=== PATIENT | male | born 1935 | race Caucasian/White ===

== ENCOUNTER → 2017-01-01 | Outpatient (REF) | payer MEDICARE ==
[2017-01-01 12:16] LABS: ALBUMIN 3.8 GM/DL (3.2-5.2); ALBUMIN/GLOBULIN RATIO 1.09 (1.00-1.93); ALKALINE PHOSPHATASE 90 U/L (45-117); ALT/SGPT 23 U/L (12-78); ANION GAP 8 MEQ/L (8-16); AST/SGOT 17 U/L (15-37); BILIRUBIN,TOTAL 0.5 MG/DL (0.2-1.0); BLOOD UREA NITROGEN 22 MG/DL (7-18); CALCIUM LEVEL 8.9 MG/DL (8.8-10.2); CARBON DIOXIDE LEVEL 29 MEQ/L (21-32); CHLORIDE LEVEL 102 MEQ/L (98-107); CHOLESTEROL LEVEL 160 MG/DL (<200); CREATININE FOR GFR 1.04 MG/DL (0.70-1.30); GLOMERULAR FILTRATION RATE > 60.0 (>42); GLUCOSE, FASTING 87 MG/DL (83-110); POTASSIUM SERUM 4.5 MEQ/L (3.5-5.1); SODIUM LEVEL 139 MEQ/L (136-145); TOTAL PROTEIN 7.3 GM/DL (6.4-8.2); TRIGLYCERIDES LEVEL 117 MG/DL (<150)
== END ==
LOC: M SFHCCLAY 09:41
PROVIDERS: ATTEND Nurse Practitioner
DX: I10 Essential (primary) hypertension (principal); Z12.5 Encounter for screening for malignant neoplasm of prostate
CPT/HCPCS: 80053; 80061; G0103; G0463

== ENCOUNTER 2017-05-05 12:10 | Inpatient (IN) | payer MEDICARE, MEDICAID ==
[~2017-05-05] VITALS: Ht 182.9 cm; Wt 76.7 kg
[2017-05-05] MEDS ORDERED: AMLO25TA PO (12:21)
[2017-05-05] MEDS ORDERED: LISI-538 PO (12:21)
[2017-05-05] MEDS ORDERED: CRES20TA PO (12:21)
[2017-05-05] MEDS ORDERED: ASPI81TA85 PO (12:21)
[2017-05-05] MEDS ORDERED: NS 500 ML IV ONE (12:45)
[2017-05-05 12:48] LABS: BASO # 0.1 K/mm3 (0.0-0.2); BASO % 0.8 % (0.0-1.0); EOS # 0.2 K/mm3 (0.0-0.50); LARGE UNSTAINED CELL # 0.2 K/mm3 (0.0-0.4); LARGE UNSTAINED CELL % 2.2 % (0.0-4.0); LYMPH # 2.9 K/mm3 (1.5-4.5); LYMPH % 31.9 % (24.0-44.0); MEAN CORPUSCULAR HEMOGLOBIN 32.5 pg (27.0-33.0); MEAN CORPUSCULAR HGB CONC 33.5 g/dl (32.0-36.5); MONO # 0.5 K/mm3 (0.0-0.8); NEUTROPHILS # 5.1 K/mm3 (1.8-7.7); NEUTROPHILS % 57.2 % (36.0-66.0); PLATELET COUNT, AUTOMATED 261 k/mm3 (150-450); RED CELL DISTRIBUTION WIDTH 12.7 % (11.5-14.5)
[2017-05-05 13:08] LABS: ALBUMIN 3.9 GM/DL (3.2-5.2); ALBUMIN/GLOBULIN RATIO 0.98 (1.00-1.93); BILIRUBIN,DIRECT 0.6 MG/DL (0.0-0.2); BILIRUBIN,TOTAL 1.3 MG/DL (0.2-1.0); CALCIUM LEVEL 9.7 MG/DL (8.8-10.2); CREATININE FOR GFR 1.45 MG/DL (0.70-1.30); POTASSIUM SERUM 4.2 MEQ/L (3.5-5.1); TOTAL PROTEIN 7.9 GM/DL (6.4-8.2)
[2017-05-05] MEDS ORDERED: ISOVUE-370 76% 100ML VIAL (Q9967) As Ordered ONE (13:12)
--- NOTE | 2017-05-05 13:47 | REP ---
Chest one-view HISTORY: Altered mental status Comparison: 04/02/2010 The lungs are clear. The heart is normal in size. The pulmonary vasculature is normal in appearance. Impression: No acute disease. Signed by Moris Rios MD 05/05/2017 01:38 P
--- NOTE | 2017-05-05 15:14 | REP ---
CT HEAD WITHOUT CONTRAST: HISTORY: Altered mental status. Areas of decreased attentuation are present in the periventricular white matter. This represents small ischemic disease. There is no intraparenchymal hemorrhage, mass, or midline shift. The ventricular system and cortical sulci are dilated consistent with moderate volume loss. There is no extracerebral collection. The visualized sinuses are clear. IMPRESSION: 1. Small vessel ischemic disease. 2. Moderate volume loss. Signed by Moris Rios MD 05/05/2017 03:16 P
--- NOTE | 2017-05-05 15:30 | REP ---
REASON FOR EXAM: Left upper quadrant pain. COMPARISON: None. CONTRAST: 100 mL Isovue 370. The lung bases are clear. There are no pleural or pericardial effusions. The liver is within normal limits. The gallbladder is within normal limits. Granulomatous calcifications are seen within the spleen. There is fatty infiltration of the pancreatic body and tail. The adrenal glands are unremarkable. The right kidney is within normal limits. There is a large 8 cm sized low density mass in the left kidney having water Hounsfield unit readings and without evidence of a septations or enhancing mural nodules. There is a smaller also round 1.7 cm sized structure having the same imaging characteristics. Both are consistent with simple Bosniak class I renal cysts. Calcific atherosclerotic changes are seen in the abdominal aorta. There is no evidence of an intra-abdominal mass or adenopathy. There is no evidence of free fluid or free air. The bowel loops and their mesenteries are within normal limits. CT PELVIS: The bowel loops and their mesenteries are within normal limits. There is no mass or adenopathy. There is no free fluid or free air. Bone window technique though the exam shows hip, spinal, and sacroiliac joint degenerative changes. The bones do appear to be somewhat demineralized. IMPRESSION: There is no evidence of acute intra-abdominal or intrapelvic disease. There are left renal cysts. As described above and other chronic changes. Signed by Anupam Goldstein DO 05/05/2017 04:37 P
--- NOTE | 2017-05-05 18:34 | HPEPDOC ---
General Date of Admission May 05, 2017 at 17:11 Chief Complaint The patient is a 81-year-old male admitted with a reason for visit of Acute Kidney Failure. History of Present Illness 81 y/o male with past medical history of htn, hyperlipidemia who presents to ED with CC of "it hurts to pee". The pt tells me that for the past two months it has been hurting him to urinate, stating that it rondon when he attempts to void and that two nights ago he "wet the bed". He denies blood in his urine, nor stool, pain with defecation, abdominal pain, n/v, fever, chills or muscle aches. Unfortunately he is not the best historian as he is very forgetful and veers off into tangental direction many times in the course of the exam. He does tell me that he lives home alone and does not walk with the assistance of a cane or walker. He is unfortunately not orientated to time nor place, only correctly giving me his name. Home Medications Scheduled Amlodipine Besylate (Norvasc) 2.5 Mg Tab, 5 MG PO DAILY, (Reported) Aspirin (Aspir-81) 81 Mg Tab, 81 MG PO DAILY, (Reported) Lisinopril (Lisinopril) 20 Mg Tab, 20 MG PO DAILY, (Reported) Rosuvastatin Calcium (Crestor) 20 Mg Tab, 20 MG PO DAILY, (Reported) Allergies Coded Allergies: No Known Drug Allergy (Unverified Allergy, Mild, 01/28/13) Past Medical History Medical History HTN hyperlipidemia Family History Significant Family History: No pertinent family hx Social History * Smoker: Denies, former Smoker (tells me quit 20 yrs ago, 10 cigs a day for > 20 yrs) Alcohol: Denies Drugs: denies lives at home by himself Review of Symptoms Constitutional: Denies: Chills, Fever, Malaise Eyes: Denies: Vision change, Conjunctivae inflammation Skin: Denies: Rash, Lesions Pulmonary: Denies: Dyspnea, Cough Cardiovascular: Denies: Chest Pain, Palpitations, Orthopnea, Edema, Lt Headedness Gastrointestinal: Denies: Nausea, Vomiting, Abdominal Pain Genitourinary: Reports: Dysuria, Incontinence, Denies: Frequency, Hematuria, Retention Hematologic: Denies: Bruising Musculoskeletal: Denies: Neck Pain Neurological: Denies: Weakness Psych: Reports: Other Psych (forgetful in questioning, needs re-direction on exam. ) Physical Examination General Exam: Positive: Alert, Cooperative, No Acute Distress Eye Exam: Positive: Conjunctiva & lids normal, EOMI, Negative: Sclera icteric ENT Exam: Positive: Atraumatic Neck Exam: Positive: Supple Chest Exam: Positive: Rhonchi (RLL), Diminished, Negative: Clear to auscultation, Normal air movement, Wheezing Heart Exam: Positive: Tachycardic, Normal S1, Normal S2, Negative: Gallops, Murmurs, Rubs Telemetry: Positive: Atrial fibrillation (paroxysmal a. fib) Abdomen Exam: Positive: Normal bowel sounds, Soft, Negative: Tenderness, Hepatospenomegaly Extremity Exam: Negative: Clubbing, Cyanosis, Edema Vital Signs Vital Signs Date Time Temp Pulse Resp B/P (MAP) Pulse Ox O2 Delivery O2 Flow Rate FiO2 05/05/17 17:44 92 122/75 (91) 98 05/05/17 14:47 16 Room Air 05/05/17 12:23 97.5 Laboratory Data Labs 24H Laboratory Tests 2 05/05/17 12:29: White Blood Count 9.0, Red Blood Count 4.99, Hemoglobin 16.2, Hematocrit 48.4, Mean Corpuscular Volume 97.0H, Mean Corpuscular Hemoglobin 32.5, Mean Corpuscular Hemoglobin Concent 33.5, Red Cell Distribution Width 12.7, Platelet Count 261, Neutrophils (%) (Auto) 57.2, Lymphocytes (%) (Auto) 31.9, Monocytes ( %) (Auto) 6.0H, Eosinophils (%) (Auto) 2.0, Basophils (%) (Auto) 0.8, Neutrophils # (Auto) 5.1, Lymphocytes # (Auto) 2.9, Monocytes # (Auto) 0.5, Eosinophils # (Auto) 0.2, Basophils # (Auto) 0.1, Large Unclassified Cells % 2.2 , Large Unclassified Cells # 0.2, Anion Gap 13, Glomerular Filtration Rate 50.0 , Lactic Acid Level 2.0, Calcium Level 9.7, Aspartate Amino Transf (AST/SGOT) 43H, Alanine Aminotransferase (ALT/SGPT) 36, Alkaline Phosphatase 104, Total Bilirubin 1.3H, Direct Bilirubin 0.6H, Ammonia 13, Total Creatine Kinase 531H, Creatine Kinase MB 15.6H, Creatine Kinase MB Relative Index 2.93, Troponin I 0.03, Total Protein 7.9, Albumin 3.9, Albumin/Globulin Ratio 0.98L, Thyroid Stimulating Hormone (TSH) 3.020 05/05/17 13:02: Bedside Glucose (Misc Panel) 94 05/05/17 15:41: Urine Appearance HAZY, Urine Color YELLOW, Urine pH 5.0, Urine Specific [place] 1.023, Urine Protein 1+H, Urine Glucose (UA) NEGATIVE, Urine Ketones 1+H, Urine Urobilinogen 2.0H, Urine Bilirubin NEGATIVE, Urine Leukocyte Esterase NEGATIVE, Urine Blood 3+H, Urine Nitrite NEGATIVE, Urine WBC (Auto) 5H, Urine RBC (Auto) TNTCH, Urine Hyaline Casts (Auto) 5, Urine Bacteria (Auto) 1+H, Urine Squamous Epithelial Cells 0, Urine Mucus (Auto) SMALL, Urine Sperm (Auto) CBC/BMP Laboratory Tests 05/05/17 12:29 Red Blood Count 4.99, Mean Corpuscular Volume 97.0 H, Mean Corpuscular Hemoglobin 32.5, Mean Corpuscular Hemoglobin Concent 33.5, Red Cell Distribution Width 12.7, Neutrophils (%) (Auto) 57.2, Lymphocytes (%) (Auto) 31.9, Monocytes (%) (Auto) 6.0 H, Eosinophils (%) (Auto) 2.0, Basophils (%) ( Auto) 0.8, Neutrophils # (Auto) 5.1, Lymphocytes # (Auto) 2.9, Monocytes # (Auto ) 0.5, Eosinophils # (Auto) 0.2, Basophils # (Auto) 0.1 Problems (1) Altered mental state Status: Acute Response to Treatment: Stable Problem Text: 53/1.45 BUN/Cr Pt on exam seemed dry, skin and tongue very dry appearing/cracked Na elevated to 149, suspect 2/2 dehydration from reduced PO intake for unknown reason will begin D5W 1/2 NS @ 100 ml to both help with KESHAV and replace free water deficit Will also obtain RPR, MRI, Echo for further work up of AMS q4h neuro checks CT head, ab/pelvis and cxr in ED all showed NAD TSH normal Tox. pending (2) Acute kidney failure Status: Acute Response to Treatment: Stable Problem Text: Baseline creatine 1.0, today 1.45 suspect 2/2 dehydration will begin fluids d5w 1/2NS @ 100 mL ,will hold nephrotoxic medications brownlee cath placed in ED after bladder scan showed >400, suggest trial of void in the morning. U/A neg for infection, results seem congruent with traumatic brownlee insert. continue to monitor (3) Atrial fibrillation Status: Acute Response to Treatment: Stable Problem Text: unfortunately pt can provide no insight or hx into the a. fib, cannot tell me if he has ever been told he had it in the past will continue pts home aspirin, BP have been soft 107/80 in ED,will hold off on continuing home BP medications for now (4) HTN (hypertension) Status: Chronic Response to Treatment: Stable Problem Text: soft BP in ED 107/80 will hold off on home BP medications for now (5) DVT prophylaxis Status: Acute Response to Treatment: Stable Problem Text: scd teds Plan / VTE VTE Prophylaxis Ordered?: Yes Plan / Urinary Catheter Reason for insertion/continuin: Other-document below GME ATTESTATION GME ATTESTATION My preceptor for this patient encounter was physically present in the building during the encounter and was fully available. As needed, all aspects of the patient interview, examination, medical decision making process, and medical care plan development were reviewed and approved by the preceptor. Preceptor is aware and concurs with the plan as stated in the body of this note and will attest to such by his/her cosignature. STORM ANGUIANO DO May 05, 2017 18:34
[2017-05-05 18:36] VITALS: BP 115/69
[2017-05-05 20:00] VITALS: BP 160/72
[2017-05-05] MEDS ORDERED: SLF 3 ML SYR IV PRN (21:00)
[2017-05-05] MEDS: SLF 3 ML SYR IV SCH (22:00)
[2017-05-05] MEDS: D5W/0.45% SODIUM CHLORIDE 1,000 ML IV SCH (22:39)
[2017-05-06] VITALS (8 sets, daily range): BP systolic 77–148; BP diastolic 49–84
[2017-05-06] MEDS: SLF 3 ML SYR IV SCH ×3 (02:43→19:31)
[2017-05-06 05:18] LABS: BASO # 0.1 K/mm3 (0.0-0.2); BASO % 0.7 % (0.0-1.0); EOS # 0.2 K/mm3 (0.0-0.50); EOS % 2.5 % (0.0-3.0); LARGE UNSTAINED CELL # 0.2 K/mm3 (0.0-0.4); LARGE UNSTAINED CELL % 1.7 % (0.0-4.0); LYMPH # 3.1 K/mm3 (1.5-4.5); LYMPH % 29.4 % (24.0-44.0); MEAN CORPUSCULAR HEMOGLOBIN 32.2 pg (27.0-33.0); MEAN CORPUSCULAR VOLUME 97.4 fl (80.0-96.0); MONO # 0.6 K/mm3 (0.0-0.8); MONO % 5.9 % (0.0-5.0); NEUTROPHILS # 5.9 K/mm3 (1.8-7.7); NEUTROPHILS % 59.8 % (36.0-66.0); PLATELET COUNT, AUTOMATED 225 k/mm3 (150-450); RED CELL DISTRIBUTION WIDTH 12.9 % (11.5-14.5); WHITE BLOOD COUNT 9.9 K/mm3 (4.0-10.0)
[2017-05-06 05:30] LABS: CALCIUM LEVEL 9.1 MG/DL (8.8-10.2); CREATININE FOR GFR 1.25 MG/DL (0.70-1.30); GLOMERULAR FILTRATION RATE 59.3 (>42); POTASSIUM SERUM 3.8 MEQ/L (3.5-5.1)
--- NOTE | 2017-05-06 08:58 | REP ---
MRI BRAIN WITHOUT CONTRAST: HISTORY: Altered mental status. COMPARISON: CT 05/05/2017. Areas of increased signal intensity on T2-weighted images are present in the periventricular and subcortical white matter. This represents small vessel ischemic disease. A punctate focus of decreased signal intensity on T2 gradient echo images is present in the violeta. This represents hemosiderin secondary to chronic microhemorrhage. There is no acute intraparenchymal hemorrhage, infarct, mass or midline shift. The ventricular system and cortical sulci are dilated consistent with moderate volume loss. There is no extracerebral collection. The sinuses are clear. Mucosal thickening is present in the mastoid air cells. IMPRESSION: 1. Small vessel ischemic disease. 2. Moderate volume loss. Signed by Moris Rios MD 05/06/2017 09:25 A
[2017-05-06] MEDS: ASPIRIN 81 MG ENTERIC TAB PO SCH (09:27)
[2017-05-06] MEDS: D5W/0.45% SODIUM CHLORIDE 1,000 ML IV SCH ×2 (09:28→19:28)
--- NOTE | 2017-05-06 12:08 | IPNPDOC ---
Subjective Date Seen The patient was seen on 05/06/17. Subjective Chief Complaint/HPI The patient is a 81-year-old male admitted with a reason for visit of Acute Kidney Failure. Events since last encounter No complaints. nurse reports difficulty swallowing. He reports difficutly starting urinary stream prior to admission Constitutional: Denies: Chills, Fever Pulmonary: Denies: Dyspnea, Cough Cardiovascular: Denies: Chest Pain, Palpitations, Orthopnea Gastrointestinal: Denies: Nausea, Vomiting, Abdominal Pain, Diarrhea, Constipation Objective Physical Examination General Exam: Positive: Alert, Cooperative, No Acute Distress, Other (thin cachectic) Eye Exam: Positive: EOMI, Negative: Sclera icteric ENT Exam: Positive: Atraumatic, Negative: Mucous membr. moist/pink (dry buccal mucosa) Neck Exam: Positive: Supple Chest Exam: Positive: Clear to auscultation, Diminished, Negative: Normal air movement, Rales, Wheezing Heart Exam: Positive: Rate Normal, Normal S1, Normal S2, Negative: Gallops, Murmurs, Rubs Telemetry: Positive: Atrial fibrillation (paroxysmal a. fib) Abdomen Exam: Positive: Normal bowel sounds, Soft, Negative: Tenderness, Hepatospenomegaly Male Exam: Negative: Edema Extremity Exam: Negative: Clubbing, Cyanosis, Edema Skin Exam: Negative: Nl turgor and temperature (poor skin turgor) Psych Exam: Positive: Other (Poor historian with memory impairment. Vague ) Assessment /Plan Problems (1) Hypotension Status: Acute Problem Text: Give IVF bolus and monitor BP trends. BP meds on hold (2) Acute kidney failure Status: Acute Response to Treatment: Stable Problem Text: 05/06 KESHAV secondary to dehydration. Renal function improving with IVF. Baseline Cr 1.0 Get swallowing eval due to trouble swallowing per nursing - make NPO until swallow eval is obtained. Hold nephrotoxic medications Brownlee cath placed in ED after bladder scan showed >400, Continue Brownlee Urine culture is pending (3) Metabolic encephalopathy Status: Acute Response to Treatment: Improving Problem Text: Suspect chronic underlying dementia with exacerbation related to dehydration. Hypernatremia may also have played a role - Na+ minimally improved with IVF. Continue to correct slowly and monitor for improvement in mental status MRI brain showed small vessel dz and minimal volume loss CT head, ab/pelvis and cxr in ED all showed NAD TSH normal (4) Atrial fibrillation Onset Date: ~ 04/2017 Status: Resolved Response to Treatment: Stable Problem Text: paroxysmal rapid afib on admission Remains in SR now Get Echo continue ASA for now. (5) HTN (hypertension) Status: Chronic Response to Treatment: Stable Problem Text: soft BP in ED 107/80 will hold off on home BP medications for now (6) Microscopic hematuria Problem Text: U/A in ER showed RBC TNTC with 3+ blood, but I am not sure if this was as a result of cath. He reports difficultly starting urinary stream and reports dysuria on admission. Had urinary retention on admission Continue brownlee. No U/C sent, but I will order one. Will need to do trial of void eventually and f/u U/A for blood. (7) Difficulty swallowing Problem Text: uncertain of when this problem started. Get swallowing eval and make NPO Plan/VTE VTE Prophylaxis Ordered?: Yes (Start SQ heparin) Plan/Urinary Catheter Reason for insertion/continuin: Other-document below Plan Family Medicine Attending Note: Patient seen and examined this afternoon; I discussed with ANTOINE Tamez and I agree with her note above. Cr is improving and BP is better this afternoon s/p IVF bolus. Recheck BMP in the morning. (KES) Disposition get PT/Ot and PFS involved with dispo planning VS, I&O, 24H, Fishbone Vital Signs/I&O Vital Signs Date Time Temp Pulse Resp B/P (MAP) Pulse Ox O2 Delivery O2 Flow Rate FiO2 05/06/17 08:00 97.3 86 18 96/70 (79) 92 Room Air I&O- Last 24 Hours up to 6 AM 05/06/17 06:00 Intake Total 2150 ml Output Total 825 ml Balance 1325 ml Laboratory Data 24H LABS Laboratory Tests 2 05/05/17 12:29: White Blood Count 9.0, Red Blood Count 4.99, Hemoglobin 16.2, Hematocrit 48.4, Mean Corpuscular Volume 97.0H, Mean Corpuscular Hemoglobin 32.5, Mean Corpuscular Hemoglobin Concent 33.5, Red Cell Distribution Width 12.7, Platelet Count 261, Neutrophils (%) (Auto) 57.2, Lymphocytes (%) (Auto) 31.9, Monocytes ( %) (Auto) 6.0H, Eosinophils (%) (Auto) 2.0, Basophils (%) (Auto) 0.8, Neutrophils # (Auto) 5.1, Lymphocytes # (Auto) 2.9, Monocytes # (Auto) 0.5, Eosinophils # (Auto) 0.2, Basophils # (Auto) 0.1, Large Unclassified Cells % 2.2 , Large Unclassified Cells # 0.2, Anion Gap 13, Glomerular Filtration Rate 50.0 , Lactic Acid Level 2.0, Calcium Level 9.7, Aspartate Amino Transf (AST/SGOT) 43H, Alanine Aminotransferase (ALT/SGPT) 36, Alkaline Phosphatase 104, Total Bilirubin 1.3H, Direct Bilirubin 0.6H, Ammonia 13, Total Creatine Kinase 531H, Creatine Kinase MB 15.6H, Creatine Kinase MB Relative Index 2.93, Troponin I 0.03, Total Protein 7.9, Albumin 3.9, Albumin/Globulin Ratio 0.98L, Thyroid Stimulating Hormone (TSH) 3.020 05/05/17 13:02: Bedside Glucose (Misc Panel) 94 05/05/17 15:41: Urine Appearance HAZY, Urine Color YELLOW, Urine pH 5.0, Urine Specific [place] 1.023, Urine Protein 1+H, Urine Glucose (UA) NEGATIVE, Urine Ketones 1+H, Urine Urobilinogen 2.0H, Urine Bilirubin NEGATIVE, Urine Leukocyte Esterase NEGATIVE, Urine Blood 3+H, Urine Nitrite NEGATIVE, Urine WBC (Auto) 5H, Urine RBC (Auto) TNTCH, Urine Hyaline Casts (Auto) 5, Urine Bacteria (Auto) 1+H, Urine Squamous Epithelial Cells 0, Urine Mucus (Auto) SMALL, Urine Sperm (Auto) 05/05/17 19:14: Ammonia 10 05/05/17 19:15: Syphilis Serology NONREACTIVE 05/06/17 05:07: White Blood Count 9.9, Red Blood Count 4.52, Hemoglobin 14.6, Hematocrit 44.1, Mean Corpuscular Volume 97.4H, Mean Corpuscular Hemoglobin 32.2, Mean Corpuscular Hemoglobin Concent 33.0, Red Cell Distribution Width 12.9, Platelet Count 225, Neutrophils (%) (Auto) 59.8, Lymphocytes (%) (Auto) 29.4, Monocytes ( %) (Auto) 5.9H, Eosinophils (%) (Auto) 2.5, Basophils (%) (Auto) 0.7, Neutrophils # (Auto) 5.9, Lymphocytes # (Auto) 3.1, Monocytes # (Auto) 0.6, Eosinophils # (Auto) 0.2, Basophils # (Auto) 0.1, Large Unclassified Cells % 1.7 , Large Unclassified Cells # 0.2, Anion Gap 6L, Glomerular Filtration Rate 59.3 , Blood Urea Nitrogen 46H, Creatinine 1.25, Sodium Level 148H, Potassium Level 3.8, Chloride Level 114H, Carbon Dioxide Level 28, Calcium Level 9.1 CBC/BMP Laboratory Tests 05/05/17 12:29 Red Blood Count 4.99, Mean Corpuscular Volume 97.0 H, Mean Corpuscular Hemoglobin 32.5, Mean Corpuscular Hemoglobin Concent 33.5, Red Cell Distribution Width 12.7, Neutrophils (%) (Auto) 57.2, Lymphocytes (%) (Auto) 31.9, Monocytes (%) (Auto) 6.0 H, Eosinophils (%) (Auto) 2.0, Basophils (%) ( Auto) 0.8, Neutrophils # (Auto) 5.1, Lymphocytes # (Auto) 2.9, Monocytes # (Auto ) 0.5, Eosinophils # (Auto) 0.2, Basophils # (Auto) 0.1 05/06/17 05:07 Red Blood Count 4.52, Mean Corpuscular Volume 97.4 H, Mean Corpuscular Hemoglobin 32.2, Mean Corpuscular Hemoglobin Concent 33.0, Red Cell Distribution Width 12.9, Neutrophils (%) (Auto) 59.8, Lymphocytes (%) (Auto) 29.4, Monocytes (%) (Auto) 5.9 H, Eosinophils (%) (Auto) 2.5, Basophils (%) ( Auto) 0.7, Neutrophils # (Auto) 5.9, Lymphocytes # (Auto) 3.1, Monocytes # (Auto ) 0.6, Eosinophils # (Auto) 0.2, Basophils # (Auto) 0.1, Calcium Level 9.1 RADHA SANTOS PA-C May 06, 2017 12:08 KRISTAN DAMON MD May 06, 2017 15:16
[2017-05-06] MEDS ORDERED: NS 500 ML IV ONE (13:00)
[2017-05-06] MEDS: HEPARIN SOD (PORCINE) 5000 UNITS/ML VIAL SQ SCH ×2 (13:03→20:08)
[2017-05-06] MEDS: ROSUVASTATIN 10 MG TAB (CRESTOR) PO SCH (20:07)
--- NOTE | 2017-05-06 21:41 | ECGEPIP ---
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 No prior ECG available for comparison at the time of interpretation. Electronically Signed On 05-06-2017 21:41:09 EDT by Chicho Mirza
[2017-05-07] VITALS (7 sets, daily range): BP systolic 90–122; BP diastolic 54–67
[2017-05-07] MEDS: SLF 3 ML SYR IV SCH ×3 (03:39→20:57)
[2017-05-07] MEDS: D5W/0.45% SODIUM CHLORIDE 1,000 ML IV SCH ×3 (04:06→23:42)
[2017-05-07 04:41] LABS: METHADONE URINE NEGATIVE (NEGATIVE)
[2017-05-07 06:33] LABS: BASO % 0.5 % (0.0-1.0); EOS # 0.4 K/mm3 (0.0-0.50); EOS % 4.4 % (0.0-3.0); LARGE UNSTAINED CELL # 0.1 K/mm3 (0.0-0.4); LARGE UNSTAINED CELL % 1.1 % (0.0-4.0); LYMPH # 2.8 K/mm3 (1.5-4.5); LYMPH % 30.3 % (24.0-44.0); MEAN CORPUSCULAR HEMOGLOBIN 31.5 pg (27.0-33.0); MEAN CORPUSCULAR HGB CONC 32.6 g/dl (32.0-36.5); MEAN CORPUSCULAR VOLUME 96.6 fl (80.0-96.0); MONO # 0.4 K/mm3 (0.0-0.8); MONO % 4.7 % (0.0-5.0); NEUTROPHILS # 5.3 K/mm3 (1.8-7.7); PLATELET COUNT, AUTOMATED 168 k/mm3 (150-450)
[2017-05-07 06:45] LABS: ANION GAP 5 MEQ/L (8-16); BLOOD UREA NITROGEN 27 MG/DL (7-18); CALCIUM LEVEL 8.4 MG/DL (8.8-10.2); CARBON DIOXIDE LEVEL 29 MEQ/L (21-32); CHLORIDE LEVEL 112 MEQ/L (98-107); CREATININE FOR GFR 1.06 MG/DL (0.70-1.30); GLOMERULAR FILTRATION RATE > 60.0 (>42); GLUCOSE, FASTING 90 MG/DL (83-110); POTASSIUM SERUM 3.4 MEQ/L (3.5-5.1); SODIUM LEVEL 146 MEQ/L (136-145)
--- NOTE | 2017-05-07 07:06 | ECGEPIP ---
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
--- NOTE | 2017-05-07 09:13 | IPNPDOC ---
Subjective Date Seen The patient was seen on 05/07/17. Subjective Chief Complaint/HPI The patient is a 81-year-old male admitted with a reason for visit of Acute Kidney Failure. Events since last encounter Pt denies pain. Complete ROS difficult to obtain d/t dementia. Constitutional: Denies: Fever ENT: Denies: Head Aches Pulmonary: Denies: Dyspnea, Cough Cardiovascular: Denies: Chest Pain Objective Physical Examination General Exam: Positive: Alert, Cooperative, No Acute Distress, Other (thin cachectic) Eye Exam: Positive: EOMI, Negative: Sclera icteric ENT Exam: Positive: Atraumatic Neck Exam: Positive: Supple Chest Exam: Positive: Clear to auscultation, Diminished, Negative: Normal air movement, Rales, Wheezing Heart Exam: Positive: Rate Normal, Normal S1, Normal S2, Negative: Gallops, Murmurs, Rubs Telemetry: Positive: Atrial fibrillation (paroxysmal a. fib) Abdomen Exam: Positive: Normal bowel sounds, Soft, Negative: Tenderness, Hepatospenomegaly Male Exam: Negative: Edema Extremity Exam: Negative: Clubbing, Cyanosis, Edema Skin Exam: Negative: Nl turgor and temperature (poor skin turgor) Psych Exam: Positive: Other (Poor historian with memory impairment. Vague ) Assessment /Plan Problems (1) Hypotension Status: Acute Problem Text: 05/07 - Pressures remain soft, stable this morning, but overnight SBP 77, remains on IVF, replaces K+. 05/06 Give IVF bolus and monitor BP trends. BP meds on hold (2) Acute kidney failure Status: Acute Response to Treatment: Stable Problem Text: 05/07 renal function has improved. Urine culture pending 05/06 KESHAV secondary to dehydration. Renal function improving with IVF. Baseline Cr 1.0 Get swallowing eval due to trouble swallowing per nursing - make NPO until swallow eval is obtained. Hold nephrotoxic medications Brownlee cath placed in ED after bladder scan showed >400, Continue Brownlee Urine culture is pending (3) Metabolic encephalopathy Status: Acute Response to Treatment: Improving Problem Text: Na continues to improve 146 today, cont IVF. 05/06 Suspect chronic underlying dementia with exacerbation related to dehydration. Hypernatremia may also have played a role - Na+ minimally improved with IVF. Continue to correct slowly and monitor for improvement in mental status MRI brain showed small vessel dz and minimal volume loss CT head, ab/pelvis and cxr in ED all showed NAD TSH normal (4) Atrial fibrillation Onset Date: ~ 04/2017 Status: Resolved Response to Treatment: Stable Problem Text: paroxysmal rapid afib on admission Remains in SR now Get Echo continue ASA for now. (5) HTN (hypertension) Status: Chronic Response to Treatment: Stable Problem Text: soft BP in ED 107/80 will hold off on home BP medications for now (6) Microscopic hematuria Problem Text: U/A in ER showed RBC TNTC with 3+ blood, but I am not sure if this was as a result of cath. He reports difficultly starting urinary stream and reports dysuria on admission. Had urinary retention on admission Continue brownlee. No U/C sent, but I will order one. Will need to do trial of void eventually and f/u U/A for blood. (7) Difficulty swallowing Problem Text: 05/07 - swallow eval done rec thin liquids, pureed food. 05/06 uncertain of when this problem started. Get swallowing eval and make NPO Plan/VTE VTE Prophylaxis Ordered?: Yes (Start SQ heparin) Plan/Urinary Catheter Reason for insertion/continuin: Other-document below Plan Family Medicine Attending Note: I saw and examined Mr. Black this afternoon; history is limited by his dementia. I d/w ANTOINE Gonzalez and I agree with her note above. 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 PT is following, but I suspect he may need STR after discharge. BP is still somewhat soft - kidney function and hypernatremia are improving, so continue IVF. Echo is still pending. He was apparently in afib with RVR in the ED, but has since been in NSR and he is currently receiving aspirin. He likely needs to be anticoagulated, however I would like to discuss this with his healthcare proxy and I am uncertain who that may be - he states he has a son named Zeyad. If his mentation does not improve, we may need to explore this further to determine choice of anticoagulant. (KES) VS, I&O, 24H, Fishbone Vital Signs/I&O Vital Signs Date Time Temp Pulse Resp B/P (MAP) Pulse Ox O2 Delivery O2 Flow Rate FiO2 05/07/17 04:45 97.8 68 20 119/67 (84) 97 Room Air I&O- Last 24 Hours up to 6 AM 05/07/17 05:59 Intake Total 3460 ml Output Total 775 ml Balance 2685 ml Laboratory Data 24H LABS Laboratory Tests 2 05/07/17 04:08: Urine Amphetamines Screen NEGATIVE, Urine Benzodiazepines Screen NEGATIVE, Urine Opiates Screen NEGATIVE, Urine Methadone Screen NEGATIVE, Urine Barbiturates Screen NEGATIVE, Urine Phencyclidine Screen NEGATIVE, Urine Cocaine Metabolite Screen NEGATIVE, Urine Cannabinoids Screen NEGATIVE 05/07/17 06:12: White Blood Count 9.0, Red Blood Count 3.99L, Hemoglobin 12.6#L, Hematocrit 38.6L, Mean Corpuscular Volume 96.6H, Mean Corpuscular Hemoglobin 31.5, Mean Corpuscular Hemoglobin Concent 32.6, Red Cell Distribution Width 13.0, Platelet Count 168, Neutrophils (%) (Auto) 59.0, Lymphocytes (%) (Auto) 30.3, Monocytes ( %) (Auto) 4.7, Eosinophils (%) (Auto) 4.4H, Basophils (%) (Auto) 0.5, Neutrophils # (Auto) 5.3, Lymphocytes # (Auto) 2.8, Monocytes # (Auto) 0.4, Eosinophils # (Auto) 0.4, Basophils # (Auto) 0.0, Large Unclassified Cells % 1.1 , Large Unclassified Cells # 0.1, Anion Gap 5L, Glomerular Filtration Rate > 60.0, Blood Urea Nitrogen 27H, Creatinine 1.06, Sodium Level 146H, Potassium Level 3.4L, Chloride Level 112H, Carbon Dioxide Level 29, Calcium Level 8.4L CBC/BMP Laboratory Tests 05/07/17 06:12 Red Blood Count 3.99 L, Mean Corpuscular Volume 96.6 H, Mean Corpuscular Hemoglobin 31.5, Mean Corpuscular Hemoglobin Concent 32.6, Red Cell Distribution Width 13.0, Neutrophils (%) (Auto) 59.0, Lymphocytes (%) (Auto) 30.3, Monocytes (%) (Auto) 4.7, Eosinophils (%) (Auto) 4.4 H, Basophils (%) ( Auto) 0.5, Neutrophils # (Auto) 5.3, Lymphocytes # (Auto) 2.8, Monocytes # (Auto ) 0.4, Eosinophils # (Auto) 0.4, Basophils # (Auto) 0.0, Calcium Level 8.4 L Microbiology Microbiology 05/06/17 Urine Culture, Received Pending GINA REYNOSO PA-C May 07, 2017 09:13 KRISTAN DAMON MD May 07, 2017 14:38
[2017-05-07] MEDS ORDERED: POTASSIUM CHLORIDE 10 MEQ SR TABLET PO ONE (09:15)
[2017-05-07] MEDS: ASPIRIN 81 MG ENTERIC TAB PO SCH (10:01)
[2017-05-07] MEDS: HEPARIN SOD (PORCINE) 5000 UNITS/ML VIAL SQ SCH ×2 (10:01→20:56)
--- NOTE | 2017-05-07 19:02 | ECHO ---
DATE OF PROCEDURE: 05/06/2017 REFERRING PHYSICIAN: Carlota Fuentes MD INDICATION: Altered mental status. HEIGHT: 183 cm WEIGHT: 66 kg DIMENSIONS: IVS: 1.3 LV: 3.6 LVPW: 1.3 LA: 3.6 Aorta: 3.2 FINDINGS: The study is of good technical quality. Left ventricle is of normal size and overall preserved left ventricle (LV) systolic function with estimated left ventricular ejection fraction (LVEF) 60-65%. I do not appreciate segmental wall motion abnormalities. Right ventricle is of normal size and systolic function. Both atria are at least mildly enlarged. Aortic valve is tricuspid. It is heavily sclerotic, but mobility is preserved. Mitral valve appears normal. Tricuspid valve also appears normal. Pulmonic valve was not well seen. No pericardial effusion is noted. Inferior vena cava is dilated, but does have some collapse with respiration, likely indicative of mildly elevated central venous pressure. Aortic root appears normal. Aortic arch and abdominal aorta were not seen. Doppler interrogation of aortic valve reveals no significant stenosis or insufficiency. There is trace mitral insufficiency and trace tricuspid insufficiency. Calculated pulmonary artery pressure is on upper limits of normal values or mildly elevated. Pulmonic valve is functionally competent. Mitral inflow pattern and tissue Doppler imaging of mitral annulus reveal grade 1 diastolic dysfunction. CONCLUSIONS: 1. Study is of good technical quality. 2. Normal LV size with mild left ventricular hypertrophy and preserved LV systolic function. Grade 1 diastolic dysfunction. 3. Prominent aortic sclerosis, but no stenosis. 4. Likely at least mildly elevated central venous pressure. 5. Mildly elevated pulmonary artery pressure. COMMENT: Subacute bacterial endocarditis (SBE) prophylaxis is not recommended.
[2017-05-07] MEDS: ROSUVASTATIN 10 MG TAB (CRESTOR) PO SCH (20:56)
[2017-05-07] MEDS: POTASSIUM CHLORIDE 10 MEQ SR TABLET PO SCH (20:56)
[2017-05-08 04:01] VITALS: BP 112/55
[2017-05-08] MEDS: SLF 3 ML SYR IV SCH ×3 (05:31→20:56)
[2017-05-08 05:48] LABS: BASO % 0.4 % (0.0-1.0); EOS # 0.4 K/mm3 (0.0-0.50); EOS % 5.8 % (0.0-3.0); LARGE UNSTAINED CELL # 0.1 K/mm3 (0.0-0.4); LARGE UNSTAINED CELL % 1.6 % (0.0-4.0); LYMPH # 3.4 K/mm3 (1.5-4.5); LYMPH % 42.5 % (24.0-44.0); MEAN CORPUSCULAR HEMOGLOBIN 31.9 pg (27.0-33.0); MEAN CORPUSCULAR HGB CONC 33.2 g/dl (32.0-36.5); MEAN CORPUSCULAR VOLUME 96.2 fl (80.0-96.0); MONO # 0.4 K/mm3 (0.0-0.8); MONO % 4.8 % (0.0-5.0); NEUTROPHILS # 3.4 K/mm3 (1.8-7.7); PLATELET COUNT, AUTOMATED 147 k/mm3 (150-450); WHITE BLOOD COUNT 7.6 K/mm3 (4.0-10.0)
[2017-05-08 06:04] LABS: ANION GAP 5 MEQ/L (8-16); BLOOD UREA NITROGEN 22 MG/DL (7-18); CALCIUM LEVEL 7.7 MG/DL (8.8-10.2); CARBON DIOXIDE LEVEL 26 MEQ/L (21-32); CHLORIDE LEVEL 109 MEQ/L (98-107); CREATININE FOR GFR 0.84 MG/DL (0.70-1.30); GLOMERULAR FILTRATION RATE > 60.0 (>42); GLUCOSE, FASTING 103 MG/DL (83-110); POTASSIUM SERUM 4.1 MEQ/L (3.5-5.1); SODIUM LEVEL 140 MEQ/L (136-145)
[2017-05-08 07:30] VITALS: BP 124/71
[2017-05-08] MEDS: ASPIRIN 81 MG ENTERIC TAB PO SCH (08:59)
[2017-05-08] MEDS: HEPARIN SOD (PORCINE) 5000 UNITS/ML VIAL SQ SCH ×2 (08:59→20:56)
[2017-05-08] MEDS: POTASSIUM CHLORIDE 10 MEQ SR TABLET PO SCH ×2 (08:59→20:55)
--- NOTE | 2017-05-08 09:03 | IPNPDOC ---
Subjective Date Seen The patient was seen on 05/08/17. Subjective Chief Complaint/HPI The patient is a 81-year-old male admitted with a reason for visit of Acute Kidney Failure. Events since last encounter Feels well. Ate breakfast. No complaints. Constitutional: Denies: Chills, Fever Pulmonary: Denies: Dyspnea, Cough Cardiovascular: Denies: Chest Pain, Palpitations, Orthopnea Gastrointestinal: Denies: Nausea, Vomiting, Abdominal Pain, Diarrhea, Constipation Genitourinary: Reports: Retention (brownlee placed due to urinary retention) Objective Physical Examination General Exam: Positive: Alert, Cooperative, No Acute Distress, Other (thin cachectic, bright, alert) Eye Exam: Positive: EOMI, Negative: Sclera icteric ENT Exam: Positive: Atraumatic Neck Exam: Positive: Supple Chest Exam: Positive: Clear to auscultation, Diminished, Negative: Normal air movement, Rales, Wheezing Heart Exam: Positive: Rate Normal, Normal S1, Normal S2, Negative: Gallops, Murmurs, Rubs Abdomen Exam: Positive: Normal bowel sounds, Soft, Negative: Tenderness, Hepatospenomegaly Male Exam: Negative: Edema Extremity Exam: Negative: Clubbing, Cyanosis, Edema Skin Exam: Negative: Nl turgor and temperature (poor skin turgor) Psych Exam: Positive: Other (Poor historian with memory impairment. Vague ) Assessment /Plan Problems (1) Hypotension Status: Resolved Problem Text: 05/08 - BP normalized with IVF. Eating and drinking well. d/C IVF 05/07 - Pressures remain soft, stable this morning, but overnight SBP 77, remains on IVF, replaces K+. 05/06 Give IVF bolus and monitor BP trends. BP meds on hold (2) Atrial fibrillation Onset Date: ~ 04/2017 Status: Resolved Response to Treatment: Stable Problem Text: paroxysmal rapid afib on admission. No recurrence on telemetry Echo - Normal LV EF. LA 3.6 cm continue ASA for now. (3) Urinary retention Status: Acute Problem Text: brownlee placed. U/C pending. Start Flomax (4) Acute kidney failure Status: Resolved Response to Treatment: Stable Problem Text: 05/08 - Renal function normalized with IVF 05/07 renal function has improved. Urine culture pending 05/06 KESHAV secondary to dehydration. Renal function improving with IVF. Baseline Cr 1.0 Get swallowing eval due to trouble swallowing per nursing - make NPO until swallow eval is obtained. Hold nephrotoxic medications Brownlee cath placed in ED after bladder scan showed >400, Continue Brownlee Urine culture is pending (5) Metabolic encephalopathy Status: Acute Response to Treatment: Improving Problem Text: 05/08 - Na+ normalized. Mental status improved, but has underlying dementia with some confusion. 05/06 Suspect chronic underlying dementia with exacerbation related to dehydration. Hypernatremia may also have played a role - MRI brain showed small vessel dz and minimal volume loss CT head, ab/pelvis and cxr in ED all showed NAD TSH normal (6) HTN (hypertension) Status: Chronic Response to Treatment: Stable Problem Text: soft BP in ED 107/80 will hold off on home BP medications for now (7) Microscopic hematuria Problem Text: U/A in ER showed RBC TNTC with 3+ blood, but I am not sure if this was as a result of cath. He reports difficultly starting urinary stream and reports dysuria on admission. Had urinary retention on admission Continue brownlee. No U/C sent, but I will order one. Will need to do trial of void eventually and f/u U/A for blood. (8) Difficulty swallowing Problem Text: 05/08 - tolerating thin liquids and pureed solids. 05/07 - swallow eval done rec thin liquids, pureed food. 05/06 uncertain of when this problem started. Get swallowing eval and make NPO Plan/VTE VTE Prophylaxis Ordered?: Yes (Start SQ heparin) Plan/Urinary Catheter Reason for insertion/continuin: Other-document below Plan Family Medicine Attending Note: I saw Mr. Black early this morning; I agree with Dalila Santos's note above. I agree with starting flomax for urinary retention and transferring to the floor. I attempted to discuss discharge plans with the patient this morning, but he remains confused - he was not oriented to situation, place, or time. I suspect that this is due to his underlying dementia rather than any acute encephalopathy. However, it seems that he was living at home by himself prior to this admission, and I do not think he is safe to be discharged home alone. We will appreciate PFS' help in determining next of kin and discharge planning. (KES) Disposition PFS involved - may need placement Move to floor today VS, I&O, 24H, Fishbone Vital Signs/I&O Vital Signs Date Time Temp Pulse Resp B/P (MAP) Pulse Ox O2 Delivery O2 Flow Rate FiO2 05/08/17 07:30 97.8 73 20 124/71 (88) 98 Room Air I&O- Last 24 Hours up to 6 AM 05/08/17 06:00 Intake Total 4140 ml Output Total 850 ml Balance 3290 ml Laboratory Data 24H LABS Laboratory Tests 2 05/08/17 05:25: White Blood Count 7.6, Red Blood Count 3.30L, Hemoglobin 10.5#L, Hematocrit 31.7L, Mean Corpuscular Volume 96.2H, Mean Corpuscular Hemoglobin 31.9, Mean Corpuscular Hemoglobin Concent 33.2, Red Cell Distribution Width 13.0, Platelet Count 147L, Neutrophils (%) (Auto) 45.0, Lymphocytes (%) (Auto) 42.5, Monocytes (%) (Auto) 4.8, Eosinophils (%) (Auto) 5.8H, Basophils (%) (Auto) 0.4, Neutrophils # (Auto) 3.4, Lymphocytes # (Auto) 3.4, Monocytes # (Auto) 0.4, Eosinophils # (Auto) 0.4, Basophils # (Auto) 0.0, Large Unclassified Cells % 1.6 , Large Unclassified Cells # 0.1, Anion Gap 5L, Glomerular Filtration Rate > 60.0, Blood Urea Nitrogen 22H, Creatinine 0.84, Sodium Level 140, Potassium Level 4.1#, Chloride Level 109H, Carbon Dioxide Level 26, Calcium Level 7.7L CBC/BMP Laboratory Tests 05/08/17 05:25 Red Blood Count 3.30 L, Mean Corpuscular Volume 96.2 H, Mean Corpuscular Hemoglobin 31.9, Mean Corpuscular Hemoglobin Concent 33.2, Red Cell Distribution Width 13.0, Neutrophils (%) (Auto) 45.0, Lymphocytes (%) (Auto) 42.5, Monocytes (%) (Auto) 4.8, Eosinophils (%) (Auto) 5.8 H, Basophils (%) ( Auto) 0.4, Neutrophils # (Auto) 3.4, Lymphocytes # (Auto) 3.4, Monocytes # (Auto ) 0.4, Eosinophils # (Auto) 0.4, Basophils # (Auto) 0.0, Calcium Level 7.7 L Microbiology Microbiology 05/06/17 Urine Culture, Received Pending DALILA SANTOS PA-C May 08, 2017 09:03 KRISTAN DAMON MD May 08, 2017 10:26
[2017-05-08 10:06] LABS: FOLATE 13.3 NG/ML (>5.4)
[2017-05-08] MEDS: TAMSULOSIN 0.4 MG CAP PO SCH (11:17)
[2017-05-08 12:00] VITALS: BP 127/64
[2017-05-08 16:00] VITALS: BP 122/69
[2017-05-08 17:08] VITALS: BP 145/70
[2017-05-08] MEDS: ROSUVASTATIN 10 MG TAB (CRESTOR) PO SCH (20:56)
[2017-05-08 22:00] VITALS: BP 111/55
[2017-05-09 05:23] LABS: BASO % 0.6 % (0.0-1.0); EOS # 0.4 K/mm3 (0.0-0.50); EOS % 5.3 % (0.0-3.0); LARGE UNSTAINED CELL # 0.1 K/mm3 (0.0-0.4); LARGE UNSTAINED CELL % 1.7 % (0.0-4.0); LYMPH # 2.8 K/mm3 (1.5-4.5); LYMPH % 37.4 % (24.0-44.0); MEAN CORPUSCULAR HEMOGLOBIN 32.4 pg (27.0-33.0); MEAN CORPUSCULAR HGB CONC 33.6 g/dl (32.0-36.5); MEAN CORPUSCULAR VOLUME 96.2 fl (80.0-96.0); MONO # 0.4 K/mm3 (0.0-0.8); MONO % 5.1 % (0.0-5.0); NEUTROPHILS # 3.6 K/mm3 (1.8-7.7); PLATELET COUNT, AUTOMATED 159 k/mm3 (150-450); WHITE BLOOD COUNT 7.2 K/mm3 (4.0-10.0)
[2017-05-09 05:36] LABS: ANION GAP 5 MEQ/L (8-16); BLOOD UREA NITROGEN 16 MG/DL (7-18); CALCIUM LEVEL 8.2 MG/DL (8.8-10.2); CARBON DIOXIDE LEVEL 28 MEQ/L (21-32); CHLORIDE LEVEL 106 MEQ/L (98-107); CREATININE FOR GFR 0.79 MG/DL (0.70-1.30); GLOMERULAR FILTRATION RATE > 60.0 (>42); GLUCOSE, FASTING 97 MG/DL (83-110); POTASSIUM SERUM 4.5 MEQ/L (3.5-5.1); SODIUM LEVEL 139 MEQ/L (136-145)
[2017-05-09 06:00] VITALS: BP 110/58
[2017-05-09] MEDS: SLF 3 ML SYR IV SCH ×3 (06:44→21:45)
[2017-05-09] MEDS: POTASSIUM CHLORIDE 10 MEQ SR TABLET PO SCH ×2 (09:19→21:45)
[2017-05-09] MEDS: TAMSULOSIN 0.4 MG CAP PO SCH (09:19)
[2017-05-09] MEDS: ASPIRIN 81 MG ENTERIC TAB PO SCH (09:19)
[2017-05-09] MEDS: HEPARIN SOD (PORCINE) 5000 UNITS/ML VIAL SQ SCH ×2 (09:19→21:45)
[2017-05-09 14:00] VITALS: BP 135/73
--- NOTE | 2017-05-09 18:28 | IPNPDOC ---
Subjective Date Seen The patient was seen on 05/09/17. Subjective Chief Complaint/HPI The patient is a 81-year-old male admitted with a reason for visit of Acute Kidney Failure. Objective Physical Examination General Exam: Positive: Alert, Cooperative, No Acute Distress, Other (thin cachectic, bright, alert) Eye Exam: Positive: EOMI, Negative: Sclera icteric ENT Exam: Positive: Atraumatic Neck Exam: Positive: Supple Chest Exam: Positive: Clear to auscultation, Diminished, Negative: Normal air movement, Rales, Wheezing Heart Exam: Positive: Rate Normal, Normal S1, Normal S2, Negative: Gallops, Murmurs, Rubs Abdomen Exam: Positive: Normal bowel sounds, Soft, Negative: Tenderness, Hepatospenomegaly Male Exam: Negative: Edema Extremity Exam: Negative: Clubbing, Cyanosis, Edema Skin Exam: Negative: Nl turgor and temperature (poor skin turgor) Psych Exam: Positive: Other (Poor historian with memory impairment. Vague ) Assessment /Plan Problems (1) Dementia Status: Chronic Response to Treatment: Stable Problem Text: PFS contacted brother Zeyad who feels patient is unsafe to live alone and favors SNF 05/08 PT not safe for dc-favoring SNF baseline mild-moderate per brother 05/05 MRI brain moderate volume loss/ (2) Atrial fibrillation Onset Date: ~ 04/2017 Status: Resolved Response to Treatment: Stable Problem Text: paroxysmal rapid afib on admission. No recurrence on telemetry Echo - Normal LV EF. LA 3.6 cm continue ASA for now. (3) Urinary retention Status: Acute Problem Text: 05/09 + Flomax/finasteride 05/05 brownlee placed on admission 2 retention 05/06 UCX NG U/A in ER showed RBC TNTC with 3+ blood, but I am not sure if this was as a result of cath. He reports difficultly starting urinary stream and reports dysuria on admission. Had urinary retention on admission (4) Acute kidney failure Status: Resolved Response to Treatment: Stable Problem Text: 05/09 cr to baseline at 0.8 KSEHAV secondary to dehydration/ACEI (5) Metabolic encephalopathy Status: Acute Response to Treatment: Improving Problem Text: 05/08 - Na+ normalized. Mental status improved, but has underlying dementia with some confusion. 05/06 Suspect chronic underlying dementia with exacerbation related to dehydration. Hypernatremia may also have played a role - MRI brain showed small vessel dz and minimal volume loss CT head, ab/pelvis and cxr in ED all showed NAD TSH normal (6) HTN (hypertension) Status: Chronic Response to Treatment: Stable Problem Text: Stable off HD lisinopril 20, amlo 2.5 (7) Difficulty swallowing Problem Text: 05/08 - tolerating thin liquids and pureed solids. 05/07 - swallow eval done rec thin liquids, pureed food. 05/06 uncertain of when this problem started. Get swallowing eval and make NPO Plan/VTE VTE Prophylaxis Ordered?: Yes (Start SQ heparin) Plan/Urinary Catheter Reason for insertion/continuin: Other-document below VS, I&O, 24H, Fishbone Vital Signs/I&O Vital Signs Date Time Temp Pulse Resp B/P (MAP) Pulse Ox O2 Delivery O2 Flow Rate FiO2 05/09/17 14:00 98.6 76 18 135/73 (93) 96 Room Air I&O- Last 24 Hours up to 6 AM 05/09/17 06:00 Intake Total 1700 ml Output Total 3150 ml Balance -1450 ml Laboratory Data 24H LABS Laboratory Tests 2 05/09/17 04:55: White Blood Count 7.2, Red Blood Count 3.39L, Hemoglobin 11.0L, Hematocrit 32.6L , Mean Corpuscular Volume 96.2H, Mean Corpuscular Hemoglobin 32.4, Mean Corpuscular Hemoglobin Concent 33.6, Red Cell Distribution Width 13.0, Platelet Count 159, Neutrophils (%) (Auto) 50.0, Lymphocytes (%) (Auto) 37.4, Monocytes ( %) (Auto) 5.1H, Eosinophils (%) (Auto) 5.3H, Basophils (%) (Auto) 0.6, Neutrophils # (Auto) 3.6, Lymphocytes # (Auto) 2.8, Monocytes # (Auto) 0.4, Eosinophils # (Auto) 0.4, Basophils # (Auto) 0.0, Large Unclassified Cells % 1.7 , Large Unclassified Cells # 0.1, Anion Gap 5L, Glomerular Filtration Rate > 60.0, Blood Urea Nitrogen 16, Creatinine 0.79, Sodium Level 139, Potassium Level 4.5, Chloride Level 106, Carbon Dioxide Level 28, Calcium Level 8.2L CBC/BMP Laboratory Tests 05/09/17 04:55 Red Blood Count 3.39 L, Mean Corpuscular Volume 96.2 H, Mean Corpuscular Hemoglobin 32.4, Mean Corpuscular Hemoglobin Concent 33.6, Red Cell Distribution Width 13.0, Neutrophils (%) (Auto) 50.0, Lymphocytes (%) (Auto) 37.4, Monocytes (%) (Auto) 5.1 H, Eosinophils (%) (Auto) 5.3 H, Basophils (%) ( Auto) 0.6, Neutrophils # (Auto) 3.6, Lymphocytes # (Auto) 2.8, Monocytes # (Auto ) 0.4, Eosinophils # (Auto) 0.4, Basophils # (Auto) 0.0, Calcium Level 8.2 L Microbiology Microbiology 05/06/17 Urine Culture - Final, Complete Waqar Benson M.D. May 09, 2017 18:28
[2017-05-09] MEDS: ROSUVASTATIN 10 MG TAB (CRESTOR) PO SCH (21:45)
[2017-05-09 22:00] VITALS: BP 104/64
[2017-05-10] MEDS: ACETAMINOPHEN 500 MG TAB PO PRN (03:56)
[2017-05-10] MEDS: SLF 3 ML SYR IV SCH ×3 (03:57→20:44)
[2017-05-10 06:00] VITALS: BP 90/60
[2017-05-10 06:18] LABS: ANION GAP 7 MEQ/L (8-16); BLOOD UREA NITROGEN 21 MG/DL (7-18); CALCIUM LEVEL 8.7 MG/DL (8.8-10.2); CARBON DIOXIDE LEVEL 28 MEQ/L (21-32); CHLORIDE LEVEL 101 MEQ/L (98-107); CREATININE FOR GFR 1.13 MG/DL (0.70-1.30); GLOMERULAR FILTRATION RATE > 60.0 (>42); GLUCOSE, FASTING 169 MG/DL (83-110); POTASSIUM SERUM 4.6 MEQ/L (3.5-5.1); SODIUM LEVEL 136 MEQ/L (136-145)
[2017-05-10 07:20] LABS: ADD MANUAL DIFFER YES; MEAN CORPUSCULAR HEMOGLOBIN 31.4 pg (27.0-33.0); MEAN CORPUSCULAR HGB CONC 32.7 g/dl (32.0-36.5); MEAN CORPUSCULAR VOLUME 95.9 fl (80.0-96.0); PLATELET COUNT, AUTOMATED 175 k/mm3 (150-450); RED CELL DISTRIBUTION WIDTH 12.9 % (11.5-14.5); WHITE BLOOD COUNT 12.3 K/mm3 (4.0-10.0)
[2017-05-10 07:20] LABS: CALCIUM OXALATE CRYSTALS SMALL
[2017-05-10 07:54] LABS: ANISOCYTOSIS 1+; BANDS 4 % (< 11); BASOPHILS 1 % (0-4); EOSINOPHILS 1 % (0-5)
[2017-05-10] MEDS: HEPARIN SOD (PORCINE) 5000 UNITS/ML VIAL SQ SCH ×2 (09:09→20:41)
[2017-05-10] MEDS: ASPIRIN 81 MG ENTERIC TAB PO SCH (09:09)
[2017-05-10] MEDS: TAMSULOSIN 0.4 MG CAP PO SCH (09:09)
[2017-05-10] MEDS: POTASSIUM CHLORIDE 10 MEQ SR TABLET PO SCH ×2 (09:10→20:41)
[2017-05-10 14:00] VITALS: BP 112/55
--- NOTE | 2017-05-10 19:34 | IPNPDOC ---
Subjective Date Seen The patient was seen on 05/10/17. Subjective Chief Complaint/HPI The patient is a 81-year-old male admitted with a reason for visit of Acute Kidney Failure. Objective Physical Examination General Exam: Positive: Alert, Cooperative, No Acute Distress, Other (thin cachectic, bright, alert) Eye Exam: Positive: EOMI, Negative: Sclera icteric ENT Exam: Positive: Atraumatic Neck Exam: Positive: Supple Chest Exam: Positive: Clear to auscultation, Diminished, Negative: Normal air movement, Rales, Wheezing Heart Exam: Positive: Rate Normal, Normal S1, Normal S2, Negative: Gallops, Murmurs, Rubs Abdomen Exam: Positive: Normal bowel sounds, Soft, Negative: Tenderness, Hepatospenomegaly Male Exam: Negative: Edema Extremity Exam: Negative: Clubbing, Cyanosis, Edema Skin Exam: Negative: Nl turgor and temperature (poor skin turgor) Psych Exam: Positive: Other (Poor historian with memory impairment. Vague ) Assessment /Plan Problems (1) Fever Status: Acute Problem Text: 05/10 Tm 100.0 at 600 c increased confusion, c WBC to 12.3 N70 (05/09 7.2), LA 1.3 no obvious source-? aspiration 05/10 CXR P 05/10 UA trace LE 05/10 UCX P 05/06 UCX NG 05/10 BCX x 2 P (2) Dementia Status: Chronic Response to Treatment: Stable Problem Text: PFS contacted brother Zeyad who feels patient is unsafe to live alone and favors SNF 05/08 PT not safe for dc-favoring SNF baseline mild-moderate per brother 05/05 MRI brain moderate volume loss/ (3) Atrial fibrillation Onset Date: ~ 04/2017 Status: Resolved Response to Treatment: Stable Problem Text: paroxysmal rapid afib on admission. No recurrence on telemetry Echo - Normal LV EF. LA 3.6 cm aspirin for anticoag nothing for rate control (4) Urinary retention Status: Acute Problem Text: 05/16 trial of void 05/09 + Flomax/finasteride 05/05 brownlee placed on admission 2 retention 05/06 UCX NG U/A in ER showed RBC TNTC with 3+ blood, but I am not sure if this was as a result of cath. He reports difficultly starting urinary stream and reports dysuria on admission. Had urinary retention on admission (5) Acute kidney failure Status: Resolved Response to Treatment: Stable Problem Text: 05/09 cr to baseline at 0.8 KESHAV secondary to dehydration/ACEI (6) Metabolic encephalopathy Status: Acute Response to Treatment: Improving Problem Text: 05/08 - Na+ normalized. Mental status improved, but has underlying dementia with some confusion. 05/06 Suspect chronic underlying dementia with exacerbation related to dehydration. Hypernatremia may also have played a role - MRI brain showed small vessel dz and minimal volume loss CT head, ab/pelvis and cxr in ED all showed NAD TSH normal (7) HTN (hypertension) Status: Chronic Response to Treatment: Stable Problem Text: Stable off HD lisinopril 20, amlo 2.5 (8) Difficulty swallowing Problem Text: 05/08 - tolerating thin liquids and pureed solids. 05/07 - swallow eval done rec thin liquids, pureed food. 05/06 uncertain of when this problem started. Get swallowing eval and make NPO Plan/VTE VTE Prophylaxis Ordered?: Yes (Start SQ heparin) Plan/Urinary Catheter Reason for insertion/continuin: Other-document below VS, I&O, 24H, Fishbone Vital Signs/I&O Vital Signs Date Time Temp Pulse Resp B/P (MAP) Pulse Ox O2 Delivery O2 Flow Rate FiO2 05/10/17 14:00 98.0 92 18 112/55 (74) 97 Room Air I&O- Last 24 Hours up to 6 AM 05/10/17 05:59 Intake Total 1380 ml Output Total 3225 ml Balance -1845 ml Laboratory Data 24H LABS Laboratory Tests 2 05/10/17 05:25: Neutrophils 70, Band Neutrophils 4, Lymphocytes (Manual) 16, Monocytes (Manual) 5, Eosinophils (Manual) 1, Basophils (Manual) 1, Atypical Lymphocytes 3, Platelet Estimate NORMAL, Anisocytosis 1+, Macrocytosis 1+ 05/10/17 05:28: Anion Gap 7L, Glomerular Filtration Rate > 60.0, Blood Urea Nitrogen 21H, Creatinine 1.13, Sodium Level 136, Potassium Level 4.6, Chloride Level 101, Carbon Dioxide Level 28, Calcium Level 8.7L 05/10/17 07:11: Urine Appearance CLEAR, Urine Color YELLOW, Urine pH 7.0, Urine Specific [place] 1.019, Urine Protein NEGATIVE, Urine Glucose (UA) NEGATIVE, Urine Ketones TRACEH, Urine Urobilinogen 4.0H, Urine Bilirubin NEGATIVE, Urine Leukocyte Esterase TRACEH, Urine Blood 1+H, Urine Nitrite NEGATIVE, Urine WBC ( Auto) 2, Urine RBC (Auto) 22H, Urine Hyaline Casts (Auto) 0, Urine Bacteria ( Auto) NEGATIVE, Urine Squamous Epithelial Cells 0, Urine Calcium Oxalate Cryst ( Auto) SMALL, Urine Sperm (Auto) 05/10/17 07:21: Lactic Acid Level 1.3 CBC/BMP Laboratory Tests 05/10/17 05:25 Red Blood Count 3.91 L, Mean Corpuscular Volume 95.9, Mean Corpuscular Hemoglobin 31.4, Mean Corpuscular Hemoglobin Concent 32.7, Red Cell Distribution Width 12.9 05/10/17 05:28 Calcium Level 8.7 L Microbiology Microbiology 05/10/17 Blood Culture, Received Pending 05/10/17 Blood Culture, Received Pending 05/06/17 Urine Culture - Final, Complete Waqar Benson M.D. May 10, 2017 19:34
[2017-05-10] MEDS: ROSUVASTATIN 10 MG TAB (CRESTOR) PO SCH (20:42)
[2017-05-10] MEDS: FINASTERIDE 5 MG TAB PO SCH (20:42)
[2017-05-10 22:00] VITALS: BP 117/61
[2017-05-10] MEDS: CLOTRIMAZOLE 1% TOPICAL CREAM 30GM TOP SCH (22:50)
[2017-05-11] MEDS: SLF 3 ML SYR IV SCH ×3 (05:57→20:21)
[2017-05-11 06:00] VITALS: BP 108/58
[2017-05-11 06:17] LABS: BASO # 0.1 K/mm3 (0.0-0.2); BASO % 0.7 % (0.0-1.0); EOS # 0.4 K/mm3 (0.0-0.50); EOS % 3.9 % (0.0-3.0); LARGE UNSTAINED CELL # 0.2 K/mm3 (0.0-0.4); LARGE UNSTAINED CELL % 1.6 % (0.0-4.0); LYMPH # 2.8 K/mm3 (1.5-4.5); LYMPH % 24.2 % (24.0-44.0); MONO # 0.6 K/mm3 (0.0-0.8); MONO % 5.3 % (0.0-5.0); NEUTROPHILS # 7.4 K/mm3 (1.8-7.7); NEUTROPHILS % 64.3 % (36.0-66.0); PLATELET COUNT, AUTOMATED 190 k/mm3 (150-450); RED CELL DISTRIBUTION WIDTH 12.8 % (11.5-14.5); WHITE BLOOD COUNT 11.4 K/mm3 (4.0-10.0)
[2017-05-11 06:27] LABS: ALBUMIN 2.5 GM/DL (3.2-5.2); ALBUMIN/GLOBULIN RATIO 0.74 (1.00-1.93); ALKALINE PHOSPHATASE 102 U/L (45-117); ALT/SGPT 69 U/L (12-78); ANION GAP 7 MEQ/L (8-16); AST/SGOT 64 U/L (15-37); BILIRUBIN,TOTAL 0.4 MG/DL (0.2-1.0); BLOOD UREA NITROGEN 19 MG/DL (7-18); CALCIUM LEVEL 8.5 MG/DL (8.8-10.2); CARBON DIOXIDE LEVEL 27 MEQ/L (21-32); CHLORIDE LEVEL 102 MEQ/L (98-107); GLOMERULAR FILTRATION RATE > 60.0 (>42); GLUCOSE, FASTING 99 MG/DL (83-110); POTASSIUM SERUM 4.6 MEQ/L (3.5-5.1); SODIUM LEVEL 136 MEQ/L (136-145); TOTAL PROTEIN 5.9 GM/DL (6.4-8.2)
--- NOTE | 2017-05-11 07:10 | REP ---
Chest single AP view the patient sitting: Comparisons are 05/05/2017 and 04/02/2010. There is a stable 4 mm nodule inferiorly in the left lung, unchanged from both prior studies, likely a granuloma. There are no focal infiltrates or effusions. Lung ballesteros are clear and unchanged. Cardiac size is normal. The misty, mediastinum, bony thorax unremarkable except for calcified atheroma in the aortic arch. Mild thoracic aortic tortuosity, unchanged. Impression: There are no acute cardiopulmonary findings. Signed by Johnny Montero MD 05/11/2017 07:01 A
[2017-05-11] MEDS: TAMSULOSIN 0.4 MG CAP PO SCH (09:20)
[2017-05-11] MEDS: CLOTRIMAZOLE 1% TOPICAL CREAM 30GM TOP SCH ×2 (09:20→20:20)
[2017-05-11] MEDS: ASPIRIN 81 MG ENTERIC TAB PO SCH (09:20)
[2017-05-11] MEDS: POTASSIUM CHLORIDE 10 MEQ SR TABLET PO SCH ×2 (09:20→20:20)
--- NOTE | 2017-05-11 10:59 | DSES ---
DATE OF ADMISSION: 05/05/2017 DATE OF DISCHARGE: ATTENDING PHYSICIAN: Dr. Natalie Gutierrez PRIMARY CARE PROVIDER: Glo Courtney HISTORY OF PRESENT ILLNESS: 81-year-old male with a past medical history of hypertension and hyperlipidemia who presented to the emergency room with a chief complaint of hurting to pee. The patient states that it had been happening for the last two months, bothering him to urinate, burning when attempting to void and having some nocturnal incontinence. It was also noted that the patient is a very poor historian, forgetful, and has tangential direction of his history, lives alone, and was not oriented to time, place or person. The patient was subsequently admitted to the family medicine service for altered mental state, acute kidney failure, history of atrial fibrillation, and hypertension. HOSPITAL COURSE: The patient did have some initial hypotension and acute kidney injury (KESHAV) slowly improved with IV fluid resuscitation. The patient was complaining of some dysphagia and did undergo a swallowing evaluation and identified need for pureed food with thin liquids to be an appropriate diet. Lewis catheter was placed in the emergency department and the patient had a significant amount of urine output with well over 400 mL. The patient has some suspected chronic underlying dementia. He did show to have some hypernatremia initially on admission, which has slowly continued to correct. MRI of the brain showed small vessel disease and minimal volume loss. The patient's atrial fibrillation did convert to sinus rhythm. The patient has continued to show significant confusion and is alert to self only. He is unable to provide his date of , the year, or the place that he is currently residing. The patient thinks that he is currently in [place], [place]. He cannot identify that this is a health care facility. He is not aware that he has a Lewis catheter placed. He is continually asking to use the bathroom. Imaging completed during hospitalization includes chest x-ray, head CT which showed small vessel ischemic disease and moderate volume loss, CT of abdomen and pelvis which was unremarkable other than some left renal cysts. MRI of the brain proved small vessel ischemic disease and moderate volume loss. Most recent labs show white blood cell count of 11,000. The patient has remained afebrile in the last 24 hours. Renal function has returned to baseline with a creatinine of 0.90, BUN of 19. The patient's sodium has returned to baseline of 136 and potassium of 4.6. On physical exam, when I entered the room, the patient had knocked most of his food off of his tray and advised that someone else had knocked his food off of his tray, but could not identify who had done that. The patient is unable to identify his date of or that this is a health care facility. The patient is unable to identify the year or the President. With any further questioning, the patient simply placed his wrist in front of my face to show me his name and date of on his hospital wrist band. HEENT: Neck is supple, without any jugular venous distention (JVD). Cardiovascular: Heart rate and rhythm are regular. Pulmonary: Lungs are clear. Abdomen is soft and nontender. The patient does have a Lewis catheter draining clear yellow urine. Neurologic: As stated in general is alert to self only. Bilateral lower extremities are without any edema. ASSESSMENT: 1. Altered mental status with presumed chronic dementia and confusion. 2. Urinary retention. The patient should have a trial of removal of Lewis catheter on 05/15/2017 for further evaluation. He was placed on Flomax and finasteride. 3. Acute kidney failure, which has resolved. 4. Metabolic encephalopathy, which has resolved. 5. Hypertension. 6. Difficulty swallowing. PLAN: The patient is transferred to SNF status. Further discharge disposition will be dictated at time of patient's discharge from this facility. BRENT
[2017-05-11] MEDS: HEPARIN SOD (PORCINE) 5000 UNITS/ML VIAL SQ SCH ×2 (11:56→20:20)
[2017-05-11 14:00] VITALS: BP 107/55
[2017-05-11] MEDS: ROSUVASTATIN 10 MG TAB (CRESTOR) PO SCH (20:20)
[2017-05-11] MEDS: FINASTERIDE 5 MG TAB PO SCH (20:20)
[2017-05-12] MEDS: SLF 3 ML SYR IV SCH ×3 (05:11→20:35)
[2017-05-12 06:00] VITALS: BP 104/57
[2017-05-12 06:18] LABS: ANION GAP 6 MEQ/L (8-16); BLOOD UREA NITROGEN 17 MG/DL (7-18); CALCIUM LEVEL 8.6 MG/DL (8.8-10.2); CARBON DIOXIDE LEVEL 29 MEQ/L (21-32); CHLORIDE LEVEL 101 MEQ/L (98-107); CREATININE FOR GFR 1.03 MG/DL (0.70-1.30); GLOMERULAR FILTRATION RATE > 60.0 (>42); GLUCOSE, FASTING 104 MG/DL (83-110); POTASSIUM SERUM 4.4 MEQ/L (3.5-5.1); SODIUM LEVEL 136 MEQ/L (136-145)
[2017-05-12] MEDS: HEPARIN SOD (PORCINE) 5000 UNITS/ML VIAL SQ SCH ×2 (08:33→20:34)
[2017-05-12] MEDS: TAMSULOSIN 0.4 MG CAP PO SCH (08:33)
[2017-05-12] MEDS: ASPIRIN 81 MG ENTERIC TAB PO SCH (08:34)
[2017-05-12] MEDS: CLOTRIMAZOLE 1% TOPICAL CREAM 30GM TOP SCH ×2 (08:34→20:34)
[2017-05-12] MEDS: POTASSIUM CHLORIDE 10 MEQ SR TABLET PO SCH ×2 (08:34→20:34)
[2017-05-12] MEDS: ROSUVASTATIN 10 MG TAB (CRESTOR) PO SCH (20:33)
[2017-05-12] MEDS: FINASTERIDE 5 MG TAB PO SCH (20:33)
[2017-05-12] MEDS: ACETAMINOPHEN 500 MG TAB PO PRN (20:35)
[2017-05-13] MEDS: SLF 3 ML SYR IV SCH ×3 (05:10→19:52)
[2017-05-13 06:00] VITALS: BP 123/63
[2017-05-13] MEDS: ASPIRIN 81 MG ENTERIC TAB PO SCH (09:45)
[2017-05-13] MEDS: TAMSULOSIN 0.4 MG CAP PO SCH (09:45)
[2017-05-13] MEDS: CLOTRIMAZOLE 1% TOPICAL CREAM 30GM TOP SCH ×2 (09:45→19:51)
[2017-05-13] MEDS: POTASSIUM CHLORIDE 10 MEQ SR TABLET PO SCH ×2 (09:45→19:49)
[2017-05-13] MEDS: HEPARIN SOD (PORCINE) 5000 UNITS/ML VIAL SQ SCH ×2 (09:45→19:51)
[2017-05-13] MEDS: ACETAMINOPHEN 500 MG TAB PO PRN (19:48)
[2017-05-13] MEDS: ROSUVASTATIN 10 MG TAB (CRESTOR) PO SCH (19:49)
[2017-05-13] MEDS: FINASTERIDE 5 MG TAB PO SCH (19:49)
[2017-05-14] MEDS: SLF 3 ML SYR IV SCH ×3 (05:30→20:48)
[2017-05-14] MEDS: HEPARIN SOD (PORCINE) 5000 UNITS/ML VIAL SQ SCH ×2 (08:33→20:48)
[2017-05-14] MEDS: TAMSULOSIN 0.4 MG CAP PO SCH (08:33)
[2017-05-14] MEDS: CLOTRIMAZOLE 1% TOPICAL CREAM 30GM TOP SCH ×2 (08:34→20:48)
[2017-05-14] MEDS: POTASSIUM CHLORIDE 10 MEQ SR TABLET PO SCH ×2 (08:34→20:46)
[2017-05-14] MEDS: ASPIRIN 81 MG ENTERIC TAB PO SCH (08:34)
[2017-05-14] MEDS: ROSUVASTATIN 10 MG TAB (CRESTOR) PO SCH (20:45)
[2017-05-14] MEDS: FINASTERIDE 5 MG TAB PO SCH (20:47)
[2017-05-14] MEDS: ACETAMINOPHEN 500 MG TAB PO PRN (20:49)
[2017-05-15] MEDS: SLF 3 ML SYR IV SCH ×3 (05:15→21:04)
[2017-05-15 06:00] VITALS: BP 116/60
[2017-05-15] MEDS: POTASSIUM CHLORIDE 10 MEQ SR TABLET PO SCH ×2 (08:17→21:01)
[2017-05-15] MEDS: ASPIRIN 81 MG ENTERIC TAB PO SCH (08:17)
[2017-05-15] MEDS: TAMSULOSIN 0.4 MG CAP PO SCH (08:17)
[2017-05-15] MEDS: HEPARIN SOD (PORCINE) 5000 UNITS/ML VIAL SQ SCH ×2 (08:18→21:00)
[2017-05-15] MEDS: CLOTRIMAZOLE 1% TOPICAL CREAM 30GM TOP SCH ×2 (08:19→21:01)
[2017-05-15] MEDS: FINASTERIDE 5 MG TAB PO SCH (21:00)
[2017-05-15] MEDS: ROSUVASTATIN 10 MG TAB (CRESTOR) PO SCH (21:00)
[2017-05-15] MEDS: ACETAMINOPHEN 500 MG TAB PO PRN (21:00)
[2017-05-16 05:56] VITALS: BP 112/60
[2017-05-16] MEDS: CLOTRIMAZOLE 1% TOPICAL CREAM 30GM TOP SCH ×2 (09:00→21:14)
[2017-05-16] MEDS: TAMSULOSIN 0.4 MG CAP PO SCH (09:12)
[2017-05-16] MEDS: POTASSIUM CHLORIDE 10 MEQ SR TABLET PO SCH ×2 (09:12→21:07)
[2017-05-16] MEDS: ASPIRIN 81 MG ENTERIC TAB PO SCH (09:12)
[2017-05-16] MEDS: HEPARIN SOD (PORCINE) 5000 UNITS/ML VIAL SQ SCH ×2 (09:15→21:13)
[2017-05-16 21:05] VITALS: BP 124/62
[2017-05-16] MEDS: FINASTERIDE 5 MG TAB PO SCH (21:06)
[2017-05-16] MEDS: ROSUVASTATIN 10 MG TAB (CRESTOR) PO SCH (21:06)
[2017-05-17 04:49] VITALS: BP 132/63
[2017-05-17] MEDS: ASPIRIN 81 MG ENTERIC TAB PO SCH (09:12)
[2017-05-17] MEDS: POTASSIUM CHLORIDE 10 MEQ SR TABLET PO SCH ×2 (09:12→20:21)
[2017-05-17] MEDS: HEPARIN SOD (PORCINE) 5000 UNITS/ML VIAL SQ SCH ×2 (09:12→20:21)
[2017-05-17] MEDS: TAMSULOSIN 0.4 MG CAP PO SCH (09:12)
[2017-05-17] MEDS: CLOTRIMAZOLE 1% TOPICAL CREAM 30GM TOP SCH ×2 (09:12→20:21)
[2017-05-17] MEDS: ROSUVASTATIN 10 MG TAB (CRESTOR) PO SCH (20:20)
[2017-05-17] MEDS: FINASTERIDE 5 MG TAB PO SCH (20:21)
[2017-05-18] MEDS: ACETAMINOPHEN 500 MG TAB PO PRN (01:15)
[2017-05-18 05:30] VITALS: BP 125/70
[2017-05-18] MEDS: HEPARIN SOD (PORCINE) 5000 UNITS/ML VIAL SQ SCH ×2 (10:57→20:31)
[2017-05-18] MEDS: POTASSIUM CHLORIDE 10 MEQ SR TABLET PO SCH ×2 (10:57→20:31)
[2017-05-18] MEDS: ASPIRIN 81 MG ENTERIC TAB PO SCH (10:57)
[2017-05-18] MEDS: TAMSULOSIN 0.4 MG CAP PO SCH (10:57)
[2017-05-18] MEDS: CLOTRIMAZOLE 1% TOPICAL CREAM 30GM TOP SCH ×2 (10:59→20:32)
[2017-05-18] MEDS: ROSUVASTATIN 10 MG TAB (CRESTOR) PO SCH (20:31)
[2017-05-18] MEDS: FINASTERIDE 5 MG TAB PO SCH (20:31)
[2017-05-19 06:00] VITALS: BP 125/76
[2017-05-19] MEDS: ASPIRIN 81 MG ENTERIC TAB PO SCH (10:24)
[2017-05-19] MEDS: TAMSULOSIN 0.4 MG CAP PO SCH (10:24)
[2017-05-19] MEDS: POTASSIUM CHLORIDE 10 MEQ SR TABLET PO SCH ×2 (10:24→20:03)
[2017-05-19] MEDS: HEPARIN SOD (PORCINE) 5000 UNITS/ML VIAL SQ SCH ×2 (10:25→20:03)
[2017-05-19] MEDS: CLOTRIMAZOLE 1% TOPICAL CREAM 30GM TOP SCH ×2 (10:25→20:03)
[2017-05-19] MEDS: ROSUVASTATIN 10 MG TAB (CRESTOR) PO SCH (20:02)
[2017-05-19] MEDS: FINASTERIDE 5 MG TAB PO SCH (20:02)
[2017-05-20 06:00] VITALS: BP 139/78
[2017-05-20] MEDS: TAMSULOSIN 0.4 MG CAP PO SCH (09:26)
[2017-05-20] MEDS: ASPIRIN 81 MG ENTERIC TAB PO SCH (09:27)
[2017-05-20] MEDS: POTASSIUM CHLORIDE 10 MEQ SR TABLET PO SCH ×2 (09:27→20:22)
[2017-05-20] MEDS: HEPARIN SOD (PORCINE) 5000 UNITS/ML VIAL SQ SCH ×2 (09:27→20:22)
[2017-05-20] MEDS: CLOTRIMAZOLE 1% TOPICAL CREAM 30GM TOP SCH ×2 (09:28→20:22)
--- NOTE | 2017-05-20 11:47 | IPNPDOC ---
Subjective Date Seen The patient was seen on 05/20/17. Subjective Chief Complaint/HPI The patient is a 81-year-old male admitted with a reason for visit of Acute Kidney Failure. Constitutional: Denies: Malaise Pulmonary: Denies: Dyspnea, Pleuritic Chest Pain Cardiovascular: Denies: Chest Pain, Orthopnea Gastrointestinal: Denies: Nausea, Abdominal Pain Objective Physical Examination General Exam: Positive: Alert, Cooperative, No Acute Distress, Other (thin cachectic, bright, alert) Eye Exam: Positive: EOMI, Negative: Sclera icteric ENT Exam: Positive: Atraumatic Neck Exam: Positive: Supple Chest Exam: Positive: Clear to auscultation, Diminished, Negative: Normal air movement, Rales, Wheezing Heart Exam: Positive: Rate Normal, Normal S1, Normal S2, Negative: Gallops, Murmurs, Rubs Abdomen Exam: Positive: Normal bowel sounds, Soft, Negative: Tenderness, Hepatospenomegaly Male Exam: Negative: Edema Extremity Exam: Negative: Clubbing, Cyanosis, Edema Skin Exam: Negative: Nl turgor and temperature (poor skin turgor) Psych Exam: Positive: Other (Poor historian with memory impairment. Vague ) Assessment /Plan Problems (1) Fever Status: Resolved Problem Text: 05/10 Tm 100.0 at 600 c increased confusion, c WBC to 12.3 N70 (05/09 7.2), LA 1.3 no obvious source-? aspiration 05/10 CXR P 05/10 UA trace LE 05/10 UCX P 05/06 UCX NG 05/10 BCX x 2 P (2) Dementia Status: Chronic Response to Treatment: Stable Problem Text: PFS contacted brother Zeyad who feels patient is unsafe to live alone and favors SNF 05/08 PT not safe for dc-favoring SNF baseline mild-moderate per brother 05/05 MRI brain moderate volume loss/ (3) Atrial fibrillation Onset Date: ~ 04/2017 Status: Resolved Response to Treatment: Stable Problem Text: paroxysmal rapid afib on admission. No recurrence on telemetry Echo - Normal LV EF. LA 3.6 cm aspirin for anticoag nothing for rate control (4) Urinary retention Status: Acute Problem Text: 05/16 trial of void 05/09 + Flomax/finasteride 05/05 brownlee placed on admission 2 retention 05/06 UCX NG U/A in ER showed RBC TNTC with 3+ blood, but I am not sure if this was as a result of cath. He reports difficultly starting urinary stream and reports dysuria on admission. Had urinary retention on admission (5) Acute kidney failure Status: Resolved Response to Treatment: Stable Problem Text: repeat labs 05/09 cr to baseline at 0.8 KESHAV secondary to dehydration/ACEI (6) Metabolic encephalopathy Status: Acute Response to Treatment: Improving Problem Text: 05/08 - Na+ normalized. Mental status improved, but has underlying dementia with some confusion. 05/06 Suspect chronic underlying dementia with exacerbation related to dehydration. Hypernatremia may also have played a role - MRI brain showed small vessel dz and minimal volume loss CT head, ab/pelvis and cxr in ED all showed NAD TSH normal (7) HTN (hypertension) Status: Chronic Response to Treatment: Stable Problem Text: Stable off HD lisinopril 20, amlo 2.5 (8) Difficulty swallowing Problem Text: 05/08 - tolerating thin liquids and pureed solids. 05/07 - swallow eval done rec thin liquids, pureed food. 05/06 uncertain of when this problem started. Get swallowing eval and make NPO Plan/VTE VTE Prophylaxis Ordered?: Yes (Start SQ heparin) Plan/Urinary Catheter Reason for insertion/continuin: Other-document below Plan Anticipated Discharge: Jail VS, I&O, 24H, Fishbone Vital Signs/I&O Vital Signs Date Time Temp Pulse Resp B/P (MAP) Pulse Ox O2 Delivery O2 Flow Rate FiO2 05/20/17 06:00 97.3 66 18 139/78 (98) 97 Room Air I&O- Last 24 Hours up to 6 AM 05/20/17 05:59 Intake Total 360 ml Output Total 550 ml Balance -190 ml Laboratory Data Microbiology Microbiology 05/10/17 Blood Culture - Final, Complete NO GROWTH AFTER 5 DAYS 05/10/17 Blood Culture - Final, Complete NO GROWTH AFTER 5 DAYS 05/10/17 Urine Culture - Final, Complete Gil Villa MD May 20, 2017 11:46
[2017-05-20] MEDS: ROSUVASTATIN 10 MG TAB (CRESTOR) PO SCH (20:21)
[2017-05-20] MEDS: FINASTERIDE 5 MG TAB PO SCH (20:22)
[2017-05-21 06:00] VITALS: BP 121/59
[2017-05-21 06:18] LABS: ANION GAP 4 MEQ/L (8-16); BLOOD UREA NITROGEN 31 MG/DL (7-18); CARBON DIOXIDE LEVEL 31 MEQ/L (21-32); CHLORIDE LEVEL 95 MEQ/L (98-107); CREATININE FOR GFR 0.95 MG/DL (0.70-1.30); GLOMERULAR FILTRATION RATE > 60.0 (>42); GLUCOSE, FASTING 89 MG/DL (83-110); POTASSIUM SERUM 4.1 MEQ/L (3.5-5.1); SODIUM LEVEL 130 MEQ/L (136-145)
[2017-05-21] MEDS: HEPARIN SOD (PORCINE) 5000 UNITS/ML VIAL SQ SCH ×2 (09:21→20:23)
[2017-05-21] MEDS: TAMSULOSIN 0.4 MG CAP PO SCH (09:21)
[2017-05-21] MEDS: ASPIRIN 81 MG ENTERIC TAB PO SCH (09:21)
[2017-05-21] MEDS: POTASSIUM CHLORIDE 10 MEQ SR TABLET PO SCH ×2 (09:22→20:22)
[2017-05-21] MEDS: CLOTRIMAZOLE 1% TOPICAL CREAM 30GM TOP SCH ×2 (09:22→20:23)
[2017-05-21] MEDS ORDERED: CLOTR1CR TOP (12:08)
[2017-05-21] MEDS ORDERED: POTA10CA PO (12:08)
[2017-05-21] MEDS ORDERED: FINA5TAB2 PO (12:08)
[2017-05-21] MEDS ORDERED: ACET50TA PO (12:08)
[2017-05-21] MEDS ORDERED: FLOM5CAP PO (12:08)
[2017-05-21] MEDS: FINASTERIDE 5 MG TAB PO SCH (20:22)
[2017-05-21] MEDS: ROSUVASTATIN 10 MG TAB (CRESTOR) PO SCH (20:22)
[2017-05-22 06:00] VITALS: BP 134/79
[2017-05-22] MEDS: POTASSIUM CHLORIDE 10 MEQ SR TABLET PO SCH (10:48)
[2017-05-22] MEDS: ASPIRIN 81 MG ENTERIC TAB PO SCH (10:48)
[2017-05-22] MEDS: HEPARIN SOD (PORCINE) 5000 UNITS/ML VIAL SQ SCH (10:48)
[2017-05-22] MEDS: TAMSULOSIN 0.4 MG CAP PO SCH (10:48)
[2017-05-22] MEDS: CLOTRIMAZOLE 1% TOPICAL CREAM 30GM TOP SCH (10:49)
--- NOTE | 2017-05-22 16:15 | DSES ---
DATE OF ADMISSION: 05/05/2017 DATE OF DISCHARGE: 05/22/2017 ADDENDUM: The patient has remained stable since the date of the SNF summary that was dictated with no new medical issues or concerns. She has a day has aspiration precautions. He seems to be eating 100% of his meals. His medications have been stable and unchanged since the date of the SNF summary and he is felt to be stable [facility] They should have a bed available for him tomorrow. His medications at this time include Proscar 5 mg at bedtime, Flomax 0.4 mg daily, Lotrimin twice a day, acetaminophen 1000 mg every 6 hours as needed, potassium 20 mEq twice a day, Crestor or 20 mg at bedtime, aspirin 81 mg daily. Discharge diagnoses are unchanged from those dictated on 05/11 SNF summary.
== END 2017-05-22 11:39 | DRG 682 ==
LOC: M ED 12:10 → M ED INP 17:11 → M PCU 18:27 → M MSPAV 05-08 17:27
PROVIDERS: ADMIT Internal Medicine; ATTEND Family Medicine
DX: N17.9 Acute kidney failure, unspecified (principal); G93.41 Metabolic encephalopathy; E87.0 Hyperosmolality and hypernatremia; R33.9 Retention of urine, unspecified; F03.90 Unspecified dementia, unspecified severity, without behavioral disturbance, psychotic disturbance, mood disturbance, and anxiety; Z79.82 Long term (current) use of aspirin; Z79.899 Other long term (current) drug therapy; I10 Essential (primary) hypertension; E78.5 Hyperlipidemia, unspecified; Z87.891 Personal history of nicotine dependence; I48.91 Unspecified atrial fibrillation; R31.29 Other microscopic hematuria